=== PATIENT | male | born 1995 | race Hispanic/Latino ===

== ENCOUNTER → 2023-09-17 07:08 | Outpatient (REF) | payer OTHER, SELFPAY ==
[2023-09-17 09:28] LABS: ALT (SGPT) 79 U/L (0-50); AST (SGOT) 47 U/L (17-59); Albumin 5.3 g/dl (3.5-5.0); Alkaline Phosphatase 57 U/L (38-126); Blood Urea Nitrogen 11 mg/dl (9-20); Calcium 9.6 mg/dl (8.4-10.2); Carbon Dioxide 27 mmol/L (22-30); Chloride 102 mmol/L (98-107); GGTP 31 U/L (15-73); Glucose 86 mg/dl (70-99); Potassium 4.7 mmol/L (3.5-5.1); Sodium 139 mmol/L (135-145); Total Bilirubin 1.4 mg/dl (0.2-1.3); Total Protein 8.3 g/dl (6.3-8.2); eGFR > 60.00
[2023-09-19 18:51] LABS: Hepatitis B Surface Antigen Negative (Negative)
[2023-09-19 19:08] LABS: Hepatitis C Antibody Negative (Negative)
== END ==
LOC: REG 07:08
PROVIDERS: ATTENDING PHYSICIAN Nurse Practitioner Acute Care
DX: R79.89 Other specified abnormal findings of blood chemistry (principal)
CPT/HCPCS: 36415; 80053; 82977; 86803; 87340

== ENCOUNTER 2023-12-19 17:41 | Emergency (ER) | payer SELFPAY ==
[2023-12-19 17:43] VITALS: BP 132/85
[2023-12-19] MEDS: ERYTHROMYCIN 0.5% OPHTHALMIC OINTMENT 1 APPLIC OPHTH (21:28)
--- NOTE | 2023-12-19 21:54 | ED.GENMED ---
History of Present Illness
General
Chief Complaint: Eye Problems
Source: patient and spouse
Exam Limitations: none
Time Seen by Provider: 12/19/23 20:11
Nursing documentation reviewed up to this point in time: agreed with
History of Present Illness
History of Present Illness:
28-year-old male presenting to the department today with concerns of foreign body sensation to his eyes bilaterally after he was using a metal furniture repairer on his car earlier today. He noted some blurry vision as well.
Review of Systems
Review of Systems
Allergies reviewed?: Yes
All Other Systems: ROS reviewed and negative except as documented in HPI and ROS
Phy Exam
Physical Exam
Physical Exam:
GENERAL: Alert , in no apparent distress
EYE: Tiny pinpoint sized foreign body right eye at the cornea in the 7:00 portion 8:00 portion and just outside of the cornea on the conjunctiva 7:00 portion. Left eye as well. Otherwise normal extraocular movements and pupil reaction normal
general visual acuity. No significant uptake of the fluorescein on fluorescein exam pupils equal and reactive
NECK: Supple, no significant adenopathy.
ENT: o/p clr, mmm.
CARDIAC: Regular rate and rhythm .
LUNGS: Clear breath sounds bilaterally, no acute respiratory distress, no wheezes/rales/rhonchi
ABDOMEN: Soft, without focal tenderness, no r/g, no cvat
NEUROLOGICAL: Alert and oriented, no focal neuro deficits
SKIN: Warm and dry, skin intact.
MUSCULOSKELETAL: No edema, well perfused.
PSYCH: Normal and appropriate interaction.
Course
Orders/Labs/Results
Orders:
Orders
12/19/23 21:05
Erythromycin (Ilotycin) [Erythromycin 0.5% Ophthalmic Ointment] See Dose Instructions OPHTH NOW STA
Vital Signs
Initial and Last Documented VS:
Initial Vital Signs
Temp Pulse Resp BP Pulse Ox
98.4 F 72 20 132/85 100
12/19/23 17:43 12/19/23 17:43 12/19/23 17:43 12/19/23 17:43 12/19/23 17:43
Last Documented Vital Signs
Temp Pulse Resp BP Pulse Ox
98.4 F 71 20 126/74 99
12/19/23 17:43 12/19/23 22:14 12/19/23 22:14 12/19/23 22:14 12/19/23 22:14
MDM/Problems Addressed
MDM/Problems Addressed:
28-year-old male presenting to the emergency department with multiple tiny metal foreign bodies to his eyes. Case discussed with ophthalmology and he will follow-up closely with them tomorrow for further removal he was started on antibiotic
ointment and drops. Otherwise no emergent findings on exam.
*Critical Care Note
Total Time (30-74mins, 75-104mins- exclusive of procedures): Not Applicable
ED Attending Note
-
Portions of this chart may have been created with voice recognition software.� Occasional wrong word or��sound alike� substitutions may have occurred due to the inherent limitations of voice recognition software.
Discharge Plan
Departure
Patient Disposition: Home (Routine Discharge)
Date of Disposition: 12/19/23
Time of Disposition: 21:54
Patient with high blood pressure during this ER visit?: No
Condition: Good
Covid-19: Not Applicable
Discharge Problem:
Eye foreign bodies
Instructions: How to Use Eye Drops, Foreign Body in Eye (DC)
Prescriptions:
New
ofloxacin 0.3 % drops
2 drp ophthalmic (eye) QID Qty: 10 0RF
Referrals:
Berny German MD [Active] - Tomorrow
Activity Restrictions/Additional Instructions:
You came to the emergency department today with concerns of eye foreign bodies. Please use the eyedrops 4 times daily and follow-up closely with ophthalmology tomorrow morning. Return to the emergency department for any worsening, new or
concerning symptoms.
Interventions
Interventions:
*Risk Screen - Suicide Last Done: 12/19/23 19:31
*General Assessment Last Done: 12/19/23 19:31
*Neglect/Abuse Screening Last Done: 12/19/23 19:31
ED- Fall Risk Assessment Last Done: 12/19/23 19:31
*ED COVID-19 Vaccine History Last Done: 12/19/23 19:31
*Nursing Disposition Last Done: 12/19/23 22:04
Discharge Date and Time
Discharge Date/Time: 12/19/23 22:16
Print Language: NIUEAN
[2023-12-19 22:04] VITALS: BP 131/74
[2023-12-19 22:14] VITALS: BP 126/74
== END 2023-12-19 22:16 | disposition home or self-care (01) ==
LOC: EMR 17:41
PROVIDERS: EMERGENCY PHYSICIAN Student in an Organized Health Care Education/Training Program
DX: T15.02XA Foreign body in cornea, left eye, initial encounter (principal); T15.01XA Foreign body in cornea, right eye, initial encounter; W44.D0XA Magnetic metal object unspecified, entering into or through a natural orifice, initial encounter
CPT/HCPCS: 99282

== ENCOUNTER → 2024-01-07 09:46 | Outpatient (REF) | payer OTHER, SELFPAY ==
[2024-01-07 10:58] LABS: Urine Albumin Negative (Neg - Trace); Urine Bilirubin Negative (Negative); Urine Character Clear (Clear); Urine Color Yellow; Urine Glucose Negative (Negative); Urine Ketone Negative (Negative); Urine Leukocyte Negative (Negative); Urine Nitrite Negative (Negative); Urine Occult Blood Trace (Negative); Urine Specific Gravity 1.015 (<1.030); Urine Urobilinogen Negative (Neg - 1+)
[2024-01-07 11:01] LABS: % Basophils 0.6 % (0-2); % Eosinophils 7.9 % (0-6); % Immature Granulocytes 0.2 % (0-0.5); % Monocytes 7.3 % (1.7-9.3); Absolute Basophils 0.1 10^3/uL (0-0.2); Absolute Eosinophils 0.7 10^3/uL (0-0.7); Absolute Lymphocytes 2.7 10^3/uL (1.2-3.4); Absolute Monocytes 0.7 10^3/uL (0.1-0.6); Absolute Neutrophils 4.9 10^3/uL (1.4-6.5); Hematocrit 48.1 % (39.0-52.0); Hemoglobin 16.4 g/dL (13.0-18.0); Mean Corp Hgb Conc. 34.1 g/dL (33.0-37.0); Mean Corpuscular Hgb 29.6 pg (27.0-31.0); Mean Corpuscular Volume 86.8 fL (80.0-94.0); Mean Platelet Volume 9.7 fL (7.4-10.4); Nucleated Red Blood Cells % 0 % (-); Platelet Count 285 10^3/uL (130-400); Red Blood Cell Count 5.54 10^6/uL (4.70-6.10); Red Cell Dist. Width 13.2 % (11.5-14.5)
[2024-01-07 11:12] LABS: ALT (SGPT) 53 U/L (0-50); AST (SGOT) 31 U/L (17-59); Albumin 4.7 g/dl (3.5-5.0); Alkaline Phosphatase 80 U/L (38-126); Blood Urea Nitrogen 13 mg/dl (9-20); Calcium 9.6 mg/dl (8.4-10.2); Carbon Dioxide 26 mmol/L (22-30); Chloride 103 mmol/L (98-107); Glucose 91 mg/dl (70-99); HDL Cholesterol 28 mg/dl; LDL Cholesterol, Calculated 78 mg/dl; Potassium 4.8 mmol/L (3.5-5.1); Sodium 138 mmol/L (135-145); Total Bilirubin 1.1 mg/dl (0.2-1.3); Total Cholesterol 121 mg/dl (50-199); Total Protein 7.5 g/dl (6.3-8.2); Triglyceride 75 mg/dl (10-149); Very Low Density Lipoprotein 15 mg/dl (0-30); eGFR > 60.00
[2024-01-07 11:31] LABS: Vitamin D, 25-OH*** 35.6 ng/mL (30-80)
[2024-01-07 11:44] LABS: TSH Reflex To Free T4 0.69 uIU/ml (0.47-4.68)
[2024-01-07 12:03] LABS: Vitamin B12 311 pg/ml (239-931)
[2024-01-07 12:40] LABS: Urine Bacteria Few (Negative); Urine Red Blood Cell 0-2 /HPF (0-2); Urine White Cell None Seen /HPF (0-5)
[2024-01-07 15:05] LABS: Glycohemoglobin (HgbA1c) 5.4 % (4.0-5.6)
== END ==
LOC: REG 09:46
PROVIDERS: ATTENDING PHYSICIAN Nurse Practitioner Acute Care
DX: Z00.00 Encounter for general adult medical examination without abnormal findings (principal)
CPT/HCPCS: 36415; 80053; 80061; 81003; 81015; 82306; 82607; 83036; 84443; 85025

== ENCOUNTER 2024-10-10 14:49 | Emergency (ER) | payer OTHER, SELFPAY ==
[2024-10-10 14:54] VITALS: BP 131/87
[2024-10-10 15:32] LABS: COVID-19 Antigen Negative (Negative)
--- NOTE | 2024-10-10 16:59 | ED.GENMED ---
History of Present Illness
General
Chief Complaint: Cold/Flu/URI Symptoms
Source: patient
Exam Limitations: none
Time Seen by Provider: 10/10/24 15:31
Nursing documentation reviewed up to this point in time: agreed with
History of Present Illness
History of Present Illness:
28 y/o M with no h/o chroinc medical problems
tajik speaking
here with 2 days subjective fever, sore throat, headache, nasal congestion
drinking liquids, solids more painful
no cp, sob, neck stiffness, rash
no recen ttravel
no chronic medical problems
took tylenol this morning
temp for me 99.5
Past History
Past History
ED Past Medical History: None
ED Past Surgical History: None
Social History
Tobacco: Non-smoker
Alcohol: None
Drug: None
Personal: Single
Living: with family
Review of Systems
Review of Systems
Allergies reviewed?: Yes
All Other Systems: Not applicable
Course
Orders/Labs/Results
Orders:
Orders
10/10/24 15:00
COVID-19 Antigen Urgent
Source: Nasal Swab
INF RAPID [Influenza A+B Rapid Molecular] Urgent
SHIVA Source: Nasal Swab
Specimen Description:
10/10/24 16:53
Dexamethasone [Decadron] 10 mg PO NOW STA
Ibuprofen [Motrin] 600 mg PO NOW STA
10/10/24 16:57
Rapid Strep Group A Urgent
SHIVA Source: Throat/Pharynx
Specimen Description:
Date Specimen was Collected: 10/10/24
Time Specimen was Collected: 16:56
Vital Signs
Initial and Last Documented VS:
Initial Vital Signs
Temp Pulse Resp BP Pulse Ox
37.3 C 100 18 131/87 99
10/10/24 14:54 10/10/24 14:54 10/10/24 14:54 10/10/24 14:54 10/10/24 14:54
Last Documented Vital Signs
Temp Pulse Resp BP Pulse Ox
37.3 C 76 16 116/74 98
10/10/24 14:54 10/10/24 18:04 10/10/24 18:04 10/10/24 18:04 10/10/24 18:04
MDM/Problems Addressed
Differential Diagnosis Includes:
strep, viral URI, mono, flu, covid
MDM/Problems Addressed:
2 days uri sxs with fever, sore throat, headache, nasal congestion
no stiff neck
no recent travel
nontoxic appearing
temp 99.5
mod pharyngearl erythema, no exudate
voice normal
nasal mucosa erythema and edema
neck supple
clear lungs
no mrumru
covid/flu/strep neg
steroids, tylenol, motrin
ED Attending Note
-
Portions of this chart may have been created with voice recognition software.� Occasional wrong word or��sound alike� substitutions may have occurred due to the inherent limitations of voice recognition software.
Discharge Plan
Departure
Patient Disposition: Home (Routine Discharge)
Date of Disposition: 10/10/24
Time of Disposition: 18:27
Patient with high blood pressure during this ER visit?: No
Condition: Fair
Covid-19: Not Applicable
Discharge Problem:
Acute upper respiratory infection
Instructions: Viral Upper Respiratory Infection, Adult (DC)
Prescriptions:
No Action
ofloxacin 0.3 % drops
2 drp ophthalmic (eye) QID Qty: 10 0RF
Referrals:
UNKNOWN - PT DOES,NOT KNOW [Family Provider] -
Stand Alone Forms: Return to Work
Activity Restrictions/Additional Instructions:
YOU PROBABLY HAVE A VIRUS
YOU TESTED NEGATIVE FOR COVID, FLU AND STREP
TAKE TYLENOL EVERY 6 HOURS FOR FEVER/HEADACHE
MOTRIN EVERY 8 HOURS FOR FEVER/HEADACHE
DRINK FLUIDS TO STAY HYDRATED
RETURN FOR: SEVERE PAIN, SEVERE DEHYDRATION, VOMITING, TROUBLE BREATHING, INABILITY TO SWALLOW OR ANY CONCERNS
PROBABLEMENTE TIENE UN VIRUS
MCDONOUGH PRUEBA DE COVID-19, GRIPE Y ESTREPTOCOCO MARCOS NEGATIVO
TOME TYLENOL CADA 6 HORAS PARA LA FIEBRE/DOLOR DE HANK
MOTRIN CADA 8 HORAS PARA LA FIEBRE/DOLOR DE HANK
[place] L�QUIDOS PARA MANTENERSE HIDRATADO
REGRESE SI TIENE: DOLOR INTENSO, DESHIDRATACI�N GRAVE, V�MITOS, DIFICULTAD PARA RESPIRAR, INCAPACIDAD PARA TRAGAR O CUALQUIER OTRA INQUIETUD
Interventions
Interventions:
*Risk Screen - Suicide Last Done: 10/10/24 14:54
*General Assessment Last Done: 10/10/24 14:54
*Neglect/Abuse Screening Last Done: 10/10/24 14:54
*ED- Fall Risk Assessment Last Done: 10/10/24 16:27
*ED COVID-19 Vaccine History Last Done: 10/10/24 16:27
*Nursing Disposition Last Done: 10/10/24 18:50
ED- Pulmonary Assessment Last Done: 10/10/24 16:27
Discharge Date and Time
Discharge Date/Time: 10/10/24 18:51
Print Language: MAURITIAN
[2024-10-10] MEDS: MOTRIN 600 MG PO (17:25)
[2024-10-10] MEDS: DECADRON 10 MG PO (17:25)
[2024-10-10 18:04] VITALS: BP 116/74
== END 2024-10-10 18:51 | disposition home or self-care (01) ==
LOC: EMR 14:49
PROVIDERS: Emergency Medicine; EMERGENCY PHYSICIAN Emergency Medicine
DX: J06.9 Acute upper respiratory infection, unspecified (principal); Z11.52 Encounter for screening for COVID-19
CPT/HCPCS: 99283; 87070; 87502; 87811; 87880